=== PATIENT | female | born 1965 | race Caucasian/White ===

== ENCOUNTER 2017-05-07 12:22 | Emergency (ER) | payer MEDICARE, MEDICAID ==
[2017-05-07 12:39] VITALS: BP 127/68
--- NOTE | 2017-05-07 13:32 | XRAY Preliminary Report ---
Exam: XR Forearm LT IMPRESSION: 1. Suspect old right scaphoid fracture. Correlate clinically and if this lady has focal tenderness in this region, 2 additional dedicated right wrist films recommended to further evaluate. 2. Mild degenerative changes right wrist. [facility] SITE ID: [id number]
--- NOTE | 2017-05-07 13:36 | ED Physician Documentation ---
PD HPI UPPER EXT INJURY - Stated complaint Stated Complaint: R HAND NUMBNESS - Chief complaint Chief Complaint: Ext Problem - History obtained from History obtained from: Patient, Family - History of Present Illness Location: Right, Wrist Type of injury: Fall Where injury occurred: Home Timing - onset: How many weeks ago (2) Timing - duration: Weeks (2) Timing - details: Abrupt onset Pain level max: 6 Pain level now: 2 Improved by: Rest Worsened by: Moving, Palpating Associated symptoms: No: Weakness, Numbness, Tingling, Swelling, Discolored Similar symptoms before: Has not had sx before Recently seen: Not recently seen - Additonal information Additional information: states R hand has been tingling and today her pinky was white when she woke up. Now normal. Was not wearing her splint at the time. Review of Systems Constitutional: denies: Fever, Chills GI: denies: Nausea, Vomiting, Diarrhea Skin: denies: Rash Musculoskeletal: denies: Neck pain, Back pain Neurologic: denies: Focal weakness, Numbness, Headache PD PAST MEDICAL HISTORY - Past Medical History Past Medical History: No - Allergies Allergies/Adverse Reactions: Allergies Allergy/AdvReac Type Severity Reaction Status Date / Time hydrocodone Allergy Nausea Verified 05/07/17 12:39 - Living Situation Living Situation: reports: With family Living Arrangement: reports: At home - Social History Does the pt have substance abuse?: No PD ED PE NORMAL - Vitals Vital signs reviewed: Yes - General General: Alert and oriented X 3, No acute distress - Derm Derm: Warm and dry - Extremities Extremities: Other (R wrist. - no deformity. no tenderness. no snuffbox tenderness. NVI. FROM without pain. + tinel sign. ) - Neuro Neuro: Alert and oriented X 3 - Psych Psych: Normal mood, Normal affect Results - Vitals Vitals: Vital Signs - 24 hr 05/07/17 12:33 Temperature 35.9 C L Heart Rate 82 Respiratory 12 Rate Blood Pressure 127/68 O2 Saturation 100 Oxygen O2 Source Room air - Rads (name of study) R forearm xray Radiology: Prelim report reviewed, EMP read contemporaneously, See rad report ( Suspect old right scaphoid fracture. Correlate clinically and if this lady has focal tenderness in this region, 2 additional dedicated right wrist films recommended to further evaluate. Mild degenerative changes right wrist.) PD MEDICAL DECISION MAKING - ED course Complexity details: reviewed old records, reviewed results, re-evaluated patient , considered differential, d/w patient, d/w family ED course: Patient is a 52-year-old female who presents to the emergency department with what sounds like carpal tunnel syndrome. Will place in a Velcro splint for this. Repeat x-ray of the forearm was performed with no acute findings. I did obtain the read from [facility] on her prior right wrist x-ray. This showed a subtle avulsion fracture suspected involving the distal radius. No other acute abnormalities. Patient is not tender over the anatomical snuffbox. Neurovascularly intact. We will have her follow-up with orthopedics for further evaluation and care. Patient counseled regarding signs and symptoms for which I believe and urgent re-evaluation would be necessary. Patient with good understanding of and agreement to plan and is comfortable going home at this time This document was made in part using voice recognition software. While efforts are made to proofread this document, sound alike and grammatical errors may occur. Departure - Departure Disposition: 01 Home, Self Care Clinical Impression: Radial styloid fracture Qualifiers: Encounter type: initial encounter Fracture type: closed Fracture alignment: nondisplaced Laterality: right Qualified Code(s): S52.514A - Nondisplaced fracture of right radial styloid process, initial encounter for closed fracture Carpal tunnel syndrome Qualifiers: Laterality: right Qualified Code(s): G56.01 - Carpal tunnel syndrome, right upper limb Condition: Good Instructions: ED Fx Forearm Radius Ulna No Redu Requ Follow-Up: Maycol Mejia MD [Primary Care Provider] - Within 1 week Comments: Wear the splint at home, make sure to follow-up with orthopedics. This should improve over the next week or so. Return if you worsen. Discharge Date/Time: 05/07/17 13:44
--- NOTE | 2017-05-07 13:43 | XRAY Report ---
EXAM: RIGHT FOREARM RADIOGRAPHY EXAM DATE: 05/07/2017 01:16 PM. CLINICAL HISTORY: Right hand numbness today after injury 1.5 weeks ago. COMPARISON: None. TECHNIQUE: 2 views. FINDINGS: Bones: Deformity mid scaphoid, partially evaluated, appears to be old. Joints: Unremarkable elbow joint. Chondrocalcinosis right wrist. Mild degenerative changes carpal bones consisting of subcortical cyst formation. Soft Tissues: Normal. No soft tissue swelling. IMPRESSION: 1. Suspect old right scaphoid fracture. Correlate clinically and if this lady has focal tenderness in this region, two additional dedicated right wrist films recommended to further evaluate. 2. Mild degenerative changes right wrist. [facility] Referring Provider Line: [phone] SITE ID: [id number]
== END 2017-05-07 13:44 | disposition home or self-care (01) ==
LOC: ED 12:22
DX: S52.514A Nondisplaced fracture of right radial styloid process, initial encounter for closed fracture (principal); W19.XXXA Unspecified fall, initial encounter; Y92.009 Unspecified place in unspecified non-institutional (private) residence as the place of occurrence of the external cause; G56.01 Carpal tunnel syndrome, right upper limb
CPT/HCPCS: 99283

== ENCOUNTER 2017-06-04 10:50 | Emergency (ER) | payer MEDICARE, MEDICAID ==
[2017-06-04 11:02] VITALS: BP 115/68
[2017-06-04 11:50] LABS: RAPID STREP SCREEN REAGENT QC YELLOW (YELLOW)
--- NOTE | 2017-06-04 12:04 | ED Physician Documentation ---
PD HPI URI - Stated complaint Stated Complaint: SINUS PX/SORE THROAT - Chief complaint Chief Complaint: Heent - History obtained from History obtained from: Patient - History of Present Illness Timing - onset: How many days ago (2-3) Timing duration: Days (2-3) Timing details: Gradual onset, Still present Associated symptoms: Fever, Chills, Nasal congestion, Sinus pain, Sore throat, Swollen nodes. No: Dry cough, Dyspnea, NVD Contributing factors: No: Sick contact, Travel, Immunocompromised Similar symptoms before: Diagnosis (strep throat but has not had it for 15-20 years.) Recently seen: Not recently seen Review of Systems Constitutional: reports: Fever, Chills, Myalgias Nose: reports: Sinus pressure / pain Throat: reports: Sore throat Respiratory: denies: Cough GI: reports: Nausea. denies: Vomiting, Diarrhea Skin: denies: Rash, Lesions PD PAST MEDICAL HISTORY - Past Medical History Past Medical History: Yes - Present Medications Home Medications: Ambulatory Orders Medication Instructions Recorded Confirmed Cephalexin [Keflex] 500 mg PO QID #24 capsule 06/04/17 Dexamethasone [Decadron] 4 mg PO DAILY #5 tablet 06/04/17 Estradiol [Estrace] 0.5 mg PO 06/04/17 06/04/17 [place] 300 mg PO TID 06/04/17 06/04/17 Ondansetron HCl [Zofran] 4 mg PO Q6H PRN #20 tablet 06/04/17 busPIRone [Buspar] 10 mg PO BID 06/04/17 06/04/17 - Allergies Allergies/Adverse Reactions: Allergies Allergy/AdvReac Type Severity Reaction Status Date / Time hydrocodone Allergy Nausea Verified 05/07/17 12:39 - Social History Does the pt smoke?: Yes Smoking Status: Current every day smoker Does the pt have substance abuse?: No PD ED PE NORMAL - Vitals Vital signs reviewed: Yes - General General: Alert and oriented X 3, Well developed/nourished - HEENT HEENT: Atraumatic, Ears normal. No: Pharynx benign (redness with tonsillar swelling and exudate. No peritonsillar edema. ) - Neck Neck: Supple, no meningeal sign, Other (anterior adenopathy, mostly right) - Cardiac Cardiac: RRR, No murmur - Respiratory Respiratory: Clear bilaterally - Derm Derm: Normal color, Warm and dry, No rash Results - Vitals Vitals: Vital Signs - 24 hr 06/04/17 11:01 Temperature 36.9 C Heart Rate 88 Respiratory 18 Rate Blood Pressure 115/68 O2 Saturation 100 Oxygen O2 Source Room air - Labs Labs: Laboratory Tests 06/04/17 11:30 Group A Strep Rapid POSITIVE H PD MEDICAL DECISION MAKING - ED course Complexity details: reviewed results, considered differential, d/w patient Departure - Departure Disposition: Home, Self Care Clinical Impression: Strep pharyngitis Condition: Stable Record reviewed to determine appropriate education?: Yes Instructions: ED Strep Pharyngitis Conf Follow-Up: Maycol Mejia MD [Primary Care Provider] - Prescriptions: Dexamethasone [Decadron] 4 mg PO DAILY #5 tablet Cephalexin [Keflex] 500 mg PO QID #24 capsule Ondansetron HCl [Zofran] 4 mg PO Q6H PRN #20 tablet PRN Reason: Nausea / Vomiting Comments: Drink lots of fluids. Tylenol or ibuprofen if needed for fever and pains. Keflex as directed for the strep infection. Decadron daily for 5 more days for the inflammation. Ondansetron as needed for nausea. Recheck if not improving over the next few days. Discharge Date/Time: 06/04/17 12:32
[2017-06-04] MEDS ORDERED: CEPHALEXIN 250 MG CAPSULE PO STA (12:08)
[2017-06-04] MEDS ORDERED: DEXAMETHASONE 10 MG/ML VIAL PO STA (12:08)
[2017-06-04] MEDS ORDERED: ONDANSETRON ODT 4 MG TABLET TL STA (12:08)
[2017-06-04] MEDS ORDERED: ACETAMINOPHEN 325 MG TABLET PO STA (12:08)
[2017-06-04] MEDS ORDERED: ACETAMINOPHEN 325 MG TABLET PO ONE (12:20)
[2017-06-04] MEDS ORDERED: CEPHALEXIN 250 MG CAPSULE PO ONE (12:20)
[2017-06-04] MEDS ORDERED: ONDANSETRON ODT 4 MG TABLET ONE (12:21)
[2017-06-04] MEDS ORDERED: DEXAMETHASONE 10 MG/ML VIAL ONE (12:21)
== END 2017-06-04 12:32 | disposition home or self-care (01) ==
LOC: ED 10:50
DX: J02.0 Streptococcal pharyngitis (principal); F17.200 Nicotine dependence, unspecified, uncomplicated
CPT/HCPCS: 87430; 99283; A9270; Q0162